=== PATIENT | male | born 1960 | race Caucasian/White ===

== ENCOUNTER 2018-07-18 09:55 | Inpatient (IN) ==
[2018-07-18] MEDS ORDERED: Ipratropium/Albuterol Neb 3 ML IH ONE (10:09)
--- NOTE | 2018-07-18 10:12 | Emergency Department Note ---
Disposition Clinical Impression: Atrial fibrillation with RVR, Pulmonary edema cardiac cause Disposition: Admitted As Inpatient Condition: Fair SOB HPI - General Chief Complaint: ED Shortness of Breath/Dyspnea Stated Complaint: "pneumonia" Time Seen by Provider: 07/18/18 10:03 Source: patient Mode of arrival: ambulatory Limitations: no limitations Nursing Notes Reviewed: Yes Vital Signs Reviewed: Yes - History of Present Illness The patient is a 57 year old male who is a former smoker that presents with productive cough, nasal congestion, and dyspnea. Per patient's report, starting 3 weeks ago he has a persistent gradually worsening productive cough with clear sputum, nasal congestion, rhinorrhea that is clear in color, as well as shortness of breath. He also has noted palpitations that he describes as his heart racing. Patient saw his PCP, who thought he may have PNA, so he was sent here to be evaluated. Patient has been taking mucinex and other over the counter sinus medication, but stopped using these a week ago when they provided no relief. Patient denies fever, chills, headache, dizziness, chest pain, shortness of breath, nausea, vomiting, changes in bowel habits, hematochezia, melena, dysuria, hematuria, and any other associated symptoms. Patient is on Xarelto for prior DVT and vascular surgery. The history, physical exam, and medical decision making was performed by the medical student either while I was physically present and actively involved or I personally re-performed the exam and medical decision making. I have verified the accuracy of the medical student's documentation with regards to the history, physical exam findings, and medical decision making. - Related Data Home Medications Medication Instructions Recorded Confirmed Cholecalciferol (D-3) [Vitamin D] 1,000 unit PO DAILY 07/18/18 07/18/18 Cyanocobalamin (B-12) [Vitamin B12] 1,000 mcg PO DAILY 07/18/18 07/18/18 Magnesium Oxide [Magnesium] 250 mg PO DAILY 07/18/18 07/18/18 [place]-3/Dha/Epa/Fish Oil [Fish Oil 1 cap PO DAILY 07/18/18 07/18/18 1,000 mg Softgel] Rivaroxaban [Xarelto] 20 mg PO DAILY 07/18/18 07/18/18 Turmeric Root Extract [Turmeric] 500 mg PO DAILY 07/18/18 07/18/18 Allergies Allergy/AdvReac Type Severity Reaction Status Date / Time No Known Allergies Allergy Verified 07/18/18 10:03 All systems ED: reviewed and negative except as stated. Review of Systems: As Per HPI Constitutional: Denies: fever, chills Eyes: Denies: eye pain, vision change ENT ED: Reports: congestion. Denies: throat pain Cardiovascular: Reports: palpitations, dyspnea on exertion. Denies: chest pain , edema Respiratory: Reports: cough, dyspnea, wheezes, sputum production Gastrointestinal: Denies: abdominal pain, nausea, vomiting, diarrhea, constipation, hematemesis, melena Genitourinary: Denies: urgency, dysuria, frequency, hematuria Musculoskeletal: Denies: back pain, neck pain Integumentary: Denies: rash, lesions Neurological: Denies: headache, weakness, numbness, paresthesias Hematological/Lymphatic: Denies: easy bleeding Past Medical History - Past Medical History Source: patient Medical history: Reports: DVT Surgical history: Reports: vascular surgery Psychiatric history: Reports: no psych history - Social History Smoking Status: Former smoker Smokeless Tobacco Status: No Alcohol use: Reports: occasionally Drug use: Reports: none Physical Exam - General Limitations: no limitations General appearance: alert, in no apparent distress - Head Head exam: atraumatic, normocephalic - Eye Eye exam: Present: normal appearance. Absent: scleral icterus, conjunctival injection - ENT ENT exam: normal exam, normal oropharynx, mucous membranes moist, TM's normal bilaterally, other (No pharyngeal erythema, no exudate, uvula is mid-line) - Neck Neck exam: Present: normal inspection, full ROM. Absent: trachea midline - Chest Chest inspection: Present: normal inspection, symmetric chest wall rise - Respiratory Respiratory exam: Present: wheezes (diffuse inspiratory and expiratory wheezing) , other (tachypneic, patient speaks in full sentence). Absent: respiratory distress, accessory muscle use - Cardiovascular Cardiovascular exam: Present: normal rhythm, tachycardia, normal heart sounds. Absent: systolic murmur, diastolic murmur, rubs, gallop - Expanded Cardiovascular Exam Peripheral pulses: 1+: radial (R), radial (L), dorsalis pedis (R), dorsalis pedis (L) - Abdominal Exam Abdominal exam: Present: soft, Non-Tender. Absent: distention, guarding, rebound, rigidity - Extremities Exam Extremities exam: Present: normal inspection, full ROM. Absent: pedal edema, calf tenderness - Neurological Exam Neurological exam: Present: alert, oriented X3 - Psychiatric Psychiatric exam: Present: normal affect, normal mood - Skin Skin exam: Present: warm, dry, intact, normal color. Absent: rash, cyanosis, diaphoresis Course - Reevaluation(s) Reevaluation #1: Patient reevaluated at this time, states he feels improved after his DouNeb treatment. Patient continues to have diffuse scattered wheezing at this time, and is tachycardic with a rate in 110s-120s on the monitor. Patient's D-dimer was elevated and CTA was ordered to rule out PE. Time: 11:22 Vital Signs Temperature 97.8 F 07/18/18 09:59 Pulse Rate 141 07/18/18 09:59 Respiratory Rate 24 07/18/18 09:59 Blood Pressure 155/116 07/18/18 09:59 O2 Sat by Pulse Oximetry 97 07/18/18 09:59 Temperature 98.7 F 07/18/18 18:59 Pulse Rate 73 07/18/18 18:59 Respiratory Rate 18 07/18/18 18:59 Blood Pressure 105/79 07/18/18 18:59 O2 Sat by Pulse Oximetry 97 07/18/18 18:59 Oxygen Delivery Oxygen Delivery Room Air Shortness of Breath/Dyspnea - [facility] Narrative Medical decision making narrative: 57-year-old male presents emergency department with concern for shortness of breath, feeling weak for the last few weeks. Patient in atrial fibrillation with RVR. Patient was given IV Cardizem push and started on Cardizem drip. Patient heart rate was reduced secondary to this. Patient was given DuoNeb's initially as he had wheezes on lung exam. Stated that this helped his symptoms. Chest x-ray that was obtained reveals mild basilar congestion interstitial edema pattern. Troponin was negative. Patient had elevated d- dimer. We obtained CTA. Per radiology, no evidence of PE. Findings compatible with interstitial pulmonary edema and small right pleural effusion. Patient admitted to the hospitalist. Heart rate was much improved at time of admission. Patient not started on any blood thinning medication at that time. Chest X-Ray 07/18/18 10:09 IMPRESSION: Mild vascular congestion and interstitial edema pattern. D/ / 07/18/2018 11:02:13 Wai Liang MD / shalini Interpreting Provider: Wai Liang MD Chest CTA 07/18/18 11:12 IMPRESSION: 1. No evidence of pulmonary embolism 2. Findings compatible with interstitial pulmonary edema and small right pleural effusion. Atypical pneumonia a less likely consideration. Mild interval mediastinal lymph node enlargement is likely congestive or reactive D/ / Ash Colvin MD / Ash Colvin MD Interpreting Provider: Ash Colvin MD - Lab Data Result diagrams: 07/18/18 11:14 07/18/18 10:15 Lab Results 07/18/18 07/18/18 07/18/18 Range/Units 10:15 10:19 10:48 WBC (4.3-11.1) K/mcL RBC (4.19-5.50) M/mcL Hgb (12.9-16.9) g/dL Hct (37.5-50.1) % MCV (83.0-100.0) fL MCH (28.0-33.3) pg MCHC (31.6-35.5) g/dL RDW (11.5-14.5) % Plt Count (140-400) K/mcL MPV (9.4-12.4) fL Immature Gran % (0-4) % Seg Neutrophils % % Lymphocytes % % Monocytes % % Eosinophils % % Basophils % % Neutrophils # (1.6-8.9) K/mcL Lymphocytes # (0.6-4.6) K/mcL Monocytes # (0.0-1.3) K/mcL Eosinophils # (0.0-0.6) K/mcL Basophils # (0.0-0.2) K/mcL D-Dimer 1029 H (0-500) ng/mLFEU Sodium 140 (136-145) mEq/L Potassium 4.3 (3.5-5.1) mEq/L Chloride 105 (98-107) mEq/L Carbon Dioxide 24 (23-29) mEq/L BUN 24 H (6-20) mg/dL Creatinine 0.95 (0.70-1.30) mg/dL Est GFR ( Amer) > 60 (> 60) Est GFR (Non-Af Amer) > 60 (> 60) BUN/Creatinine Ratio 25 (6-26) Glucose 112 H (70-105) mg/dL Calculated Osmolality 295 (280-300) Lactic Acid (0.5-2.2) mmol/L Calcium 9.5 (8.6-10.3) mg/dL Troponin I 0.03 (< 0.04) ng/mL B-Natriuretic Peptide 552 H (Less than 100) pg/mL TSH 2.143 (0.340-5.600) mcIU/mL 07/18/18 07/18/18 Range/Units 10:52 11:14 WBC 10.2 (4.3-11.1) K/mcL RBC 4.81 (4.19-5.50) M/mcL Hgb 15.8 (12.9-16.9) g/dL Hct 47.8 (37.5-50.1) % MCV 99.4 (83.0-100.0) fL MCH 32.8 (28.0-33.3) pg MCHC 33.1 (31.6-35.5) g/dL RDW 12.2 (11.5-14.5) % Plt Count 187 (140-400) K/mcL MPV 11.7 (9.4-12.4) fL Immature Gran % 0.3 (0-4) % Seg Neutrophils % 73.5 % Lymphocytes % 15.4 % Monocytes % 9.8 % Eosinophils % 0.5 % Basophils % 0.5 % Neutrophils # 7.5 (1.6-8.9) K/mcL Lymphocytes # 1.6 (0.6-4.6) K/mcL Monocytes # 1.0 (0.0-1.3) K/mcL Eosinophils # 0.1 (0.0-0.6) K/mcL Basophils # 0.1 (0.0-0.2) K/mcL D-Dimer (0-500) ng/mLFEU Sodium (136-145) mEq/L Potassium (3.5-5.1) mEq/L Chloride (98-107) mEq/L Carbon Dioxide (23-29) mEq/L BUN (6-20) mg/dL Creatinine (0.70-1.30) mg/dL Est GFR ( Amer) (> 60) Est GFR (Non-Af Amer) (> 60) BUN/Creatinine Ratio (6-26) Glucose (70-105) mg/dL Calculated Osmolality (280-300) Lactic Acid 1.7 (0.5-2.2) mmol/L Calcium (8.6-10.3) mg/dL Troponin I (< 0.04) ng/mL B-Natriuretic Peptide (Less than 100) pg/mL TSH (0.340-5.600) mcIU/mL - EKG Data EKG attestation: Yes I reviewed and interpreted this EKG. EKG results narrative: 10:13 Heart rate 154 bpm, IA interval no P waves, QRS sikhism 87 ms, QT 307 ms, QTC 392 ms, normal axis. A true fibrillation with rapid ventricular response. Heart rate 154. No ischemic ST changes. Atrial fibrillation new from old EKG.
--- NOTE | 2018-07-18 10:28 | Emergency Department Note ---
Disposition Clinical Impression: Atrial fibrillation with RVR, Pulmonary edema cardiac cause Disposition: Admitted As Inpatient Condition: Fair General Adult HPI - General Chief complaint: ED Shortness of Breath/Dyspnea Stated complaint: "pneumonia" Time Seen by Provider: 07/18/18 10:03 Nursing Notes Reviewed: Yes Vital Signs Reviewed: Yes - History of Present Illness Pain Scale: 3 - Related Data Home Medications Medication Instructions Recorded Confirmed Cholecalciferol (D-3) [Vitamin D] 1,000 unit PO DAILY 07/18/18 07/18/18 Cyanocobalamin (B-12) [Vitamin B12] 1,000 mcg PO DAILY 07/18/18 07/18/18 Magnesium Oxide [Magnesium] 250 mg PO DAILY 07/18/18 07/18/18 [place]-3/Dha/Epa/Fish Oil [Fish Oil 1 cap PO DAILY 07/18/18 07/18/18 1,000 mg Softgel] Rivaroxaban [Xarelto] 20 mg PO DAILY 07/18/18 07/18/18 Turmeric Root Extract [Turmeric] 500 mg PO DAILY 07/18/18 07/18/18 Allergies Allergy/AdvReac Type Severity Reaction Status Date / Time No Known Allergies Allergy Verified 07/18/18 10:03 Past Medical History - Past Medical History Medical history: Reports: no medical history Psychiatric history: Reports: no psych history - Social History Smoking Status: Former smoker Smokeless Tobacco Status: No Alcohol use: Reports: occasionally Drug use: Reports: none Course Vital Signs Temperature 97.8 F 07/18/18 09:59 Pulse Rate 141 07/18/18 09:59 Respiratory Rate 24 07/18/18 09:59 Blood Pressure 155/116 07/18/18 09:59 O2 Sat by Pulse Oximetry 97 07/18/18 09:59 Temperature 98.2 F 07/18/18 16:18 Pulse Rate 108 07/18/18 16:18 Respiratory Rate 18 07/18/18 16:18 Blood Pressure 132/97 07/18/18 16:18 O2 Sat by Pulse Oximetry 95 07/18/18 16:18 Oxygen Delivery Oxygen Delivery Room Air Medical Decision Making - [facility] Narrative Medical decision making narrative: Chest X-Ray 07/18/18 10:09 IMPRESSION: Mild vascular congestion and interstitial edema pattern. D/ / Wai Liang MD / Wai Liang MD Interpreting Provider: Wai Liang MD 1120 hrs.: Patient's d-dimer has come back and is elevated; we're ordering CTA. His heart rates in the upper 90s to low 100s now. Still atrial fibrillation 1312 hrs.: Patient's still in atrial fibrillation still in the 90s to 100s. Waiting on a CTA. Chest X-Ray 07/18/18 10:09 IMPRESSION: Mild vascular congestion and interstitial edema pattern. D/ / 07/18/2018 11:02:13 Wai Liang MD / shalini Interpreting Provider: Wai Liang MD Chest CTA 07/18/18 11:12 IMPRESSION: 1. No evidence of pulmonary embolism 2. Findings compatible with interstitial pulmonary edema and small right pleural effusion. Atypical pneumonia a less likely consideration. Mild interval mediastinal lymph node enlargement is likely congestive or reactive D/ / Ash Colvin MD / Ash Colvin MD Interpreting Provider: Ash Colvin MD 1340 hrs.: No PE on CTA. Were negative and bring him into the hospital new- onset atrial fib with rapid ventricular response controlled with Cardizem. Mild pulmonary edema most likely secondary to the atrial fibrillation. Speaking with hospitalist for admission. - Lab Data Result diagrams: 07/18/18 11:14 07/18/18 10:15 Lab Results 07/18/18 07/18/18 07/18/18 Range/Units 10:15 10:19 10:48 WBC (4.3-11.1) K/mcL RBC (4.19-5.50) M/mcL Hgb (12.9-16.9) g/dL Hct (37.5-50.1) % MCV (83.0-100.0) fL MCH (28.0-33.3) pg MCHC (31.6-35.5) g/dL RDW (11.5-14.5) % Plt Count (140-400) K/mcL MPV (9.4-12.4) fL Immature Gran % (0-4) % Seg Neutrophils % % Lymphocytes % % Monocytes % % Eosinophils % % Basophils % % Neutrophils # (1.6-8.9) K/mcL Lymphocytes # (0.6-4.6) K/mcL Monocytes # (0.0-1.3) K/mcL Eosinophils # (0.0-0.6) K/mcL Basophils # (0.0-0.2) K/mcL D-Dimer 1029 H (0-500) ng/mLFEU Sodium 140 (136-145) mEq/L Potassium 4.3 (3.5-5.1) mEq/L Chloride 105 (98-107) mEq/L Carbon Dioxide 24 (23-29) mEq/L BUN 24 H (6-20) mg/dL Creatinine 0.95 (0.70-1.30) mg/dL Est GFR ( Amer) > 60 (> 60) Est GFR (Non-Af Amer) > 60 (> 60) BUN/Creatinine Ratio 25 (6-26) Glucose 112 H (70-105) mg/dL Calculated Osmolality 295 (280-300) Lactic Acid (0.5-2.2) mmol/L Calcium 9.5 (8.6-10.3) mg/dL Troponin I 0.03 (< 0.04) ng/mL B-Natriuretic Peptide 552 H (Less than 100) pg/mL TSH 2.143 (0.340-5.600) mcIU/mL 07/18/18 07/18/18 Range/Units 10:52 11:14 WBC 10.2 (4.3-11.1) K/mcL RBC 4.81 (4.19-5.50) M/mcL Hgb 15.8 (12.9-16.9) g/dL Hct 47.8 (37.5-50.1) % MCV 99.4 (83.0-100.0) fL MCH 32.8 (28.0-33.3) pg MCHC 33.1 (31.6-35.5) g/dL RDW 12.2 (11.5-14.5) % Plt Count 187 (140-400) K/mcL MPV 11.7 (9.4-12.4) fL Immature Gran % 0.3 (0-4) % Seg Neutrophils % 73.5 % Lymphocytes % 15.4 % Monocytes % 9.8 % Eosinophils % 0.5 % Basophils % 0.5 % Neutrophils # 7.5 (1.6-8.9) K/mcL Lymphocytes # 1.6 (0.6-4.6) K/mcL Monocytes # 1.0 (0.0-1.3) K/mcL Eosinophils # 0.1 (0.0-0.6) K/mcL Basophils # 0.1 (0.0-0.2) K/mcL D-Dimer (0-500) ng/mLFEU Sodium (136-145) mEq/L Potassium (3.5-5.1) mEq/L Chloride (98-107) mEq/L Carbon Dioxide (23-29) mEq/L BUN (6-20) mg/dL Creatinine (0.70-1.30) mg/dL Est GFR ( Amer) (> 60) Est GFR (Non-Af Amer) (> 60) BUN/Creatinine Ratio (6-26) Glucose (70-105) mg/dL Calculated Osmolality (280-300) Lactic Acid 1.7 (0.5-2.2) mmol/L Calcium (8.6-10.3) mg/dL Troponin I (< 0.04) ng/mL B-Natriuretic Peptide (Less than 100) pg/mL TSH (0.340-5.600) mcIU/mL Critical Care Time Critical Care Time: Yes Total Critical Care Time: 45 Attestation: Excluding any separately billable procedures. Attestation Statement - Attestation Attestation: This documentation is done with the assistance of Dragon dictation. Despite efforts made to ensure accuracy, there may be inaccuracies in aluminum sheet cutter or spelling and typographical errors. I examined this patient and my medical decision-making was reviewed with the Resident Physician. I agree with the documented findings, disposition and treatment plan as described except to the extent set forth below. Patient seen and evaluated by Dr. Diaz and myself, I agree with his evaluation and management plan, I supervised the care the patient's stay. Patient presents today with 3 weeks of irregular heart rate. Also some tachycardia. Went to his primary care they thought he might have a pneumonia so they sent him over here he has been dyspneic. He does not have COPD, no one is ill at home is home.He denies any chest pain. He has had 2 DVTs in the past and is currently on Xarelto. They switched him over from Coumadin for ease abuse. We will do a cardiac workup on him, make sure he does not have pneumonia, and also do Cardizem to slow down his heart rate since he is in atrial fib with rapid ventricular response. It does not appear that he has been diagnosed with atrial fib in the past. He will need admission.
[2018-07-18 10:54] LABS: Troponin I 0.03 ng/mL (< 0.04)
[2018-07-18 11:08] LABS: Thyroid Stimulating Hormone 2.143 mcIU/mL (0.340-5.600)
[2018-07-18] MEDS ORDERED: Isovue-370 500 ML INFUS..BTL IV ONE (11:12)
[2018-07-18 11:30] LABS: BUN/Creatinine Ratio 25 (6-26); Blood Urea Nitrogen 24 mg/dL (6-20); Calcium 9.5 mg/dL (8.6-10.3); Carbon Dioxide 24 mEq/L (23-29); Chloride 105 mEq/L (98-107); Glucose 112 mg/dL (70-105); Osmolality,Calculated 295 (280-300); Potassium 4.3 mEq/L (3.5-5.1); Sodium 140 mEq/L (136-145); eGFR For Non-African Americans > 60 (> 60)
[2018-07-18 11:30] LABS: Basophils # 0.1 K/mcL (0.0-0.2); Basophils % 0.5 %; Eosinophils # 0.1 K/mcL (0.0-0.6); Eosinophils % 0.5 %; Hematocrit 47.8 % (37.5-50.1); Hemoglobin 15.8 g/dL (12.9-16.9); Immature Granulocytes % 0.3 % (0-4); Lymphocytes # 1.6 K/mcL (0.6-4.6); Lymphocytes % 15.4 %; Mean Corpuscular HGB Conc 33.1 g/dL (31.6-35.5); Mean Corpuscular Hemoglobin 32.8 pg (28.0-33.3); Mean Corpuscular Volume 99.4 fL (83.0-100.0); Mean Platelet Volume 11.7 fL (9.4-12.4); Monocytes % 9.8 %; Neutrophils # 7.5 K/mcL (1.6-8.9); Platelet Count 187 K/mcL (140-400); Red Blood Count 4.81 M/mcL (4.19-5.50); Red Cell Distribution Width 12.2 % (11.5-14.5); Segmented Neutrophils % 73.5 %
[2018-07-18] MEDS ORDERED: traMADol 50 MG TABLET PO PRN (14:03)
[2018-07-18] MEDS ORDERED: Naloxone 0.4 MG/ML INJ IVP PRN (14:03)
--- NOTE | 2018-07-18 14:18 | Internal Med History&Physical ---
Date of Encounter: 07/18/18 Time of Encounter: 14:10 Internal Medicine - H&P: HPI Chief complaint: shortness of breath Admitted From: Home Plans for Post Hospital Care: Home History of present illness: Mr. Li is a 57 year old male PMH significant for DVT on xarelto. Patient presented to the ED to shortness of breath and productive cough. Patient reported that for about 3 weeks he has been having flu like symptoms which he describes as productive cough of greenish sputum, frontal sinus pressure. He denies fever or chills but reports that he has been feeling short of breath with minimal exertion. He denies chest pain or palpitation, denies orthopnea. Denies nausea, vomiting or abdominal pain. Patient reports that he used to smoke about 1 1/2 pack of cigarettes a day for more than 30 years, but quit 5 years ago after he was diagnosed with a DVT. Past Med Surg Social Fam HX - Past Medical History Medical history: no medical history Psychiatric history: no psych history - Past Surgical History Surgical History: vascular surgery - Social History Smoking Status: Former smoker Smokeless Tobacco Status: No Alcohol use: occasionally Drug use: none Internal Medicine - H&P: Meds Cholecalciferol (D-3) [Vitamin D] 1,000 unit PO DAILY 07/18/18 [History] Cyanocobalamin (B-12) [Vitamin B12] 1,000 mcg PO DAILY 07/18/18 [History] Magnesium Oxide [Magnesium] 250 mg PO DAILY 07/18/18 [History] [place]-3/Dha/Epa/Fish Oil [Fish Oil 1,000 mg Softgel] 1 cap PO DAILY 07/18/18 [History] Rivaroxaban [Xarelto] 20 mg PO DAILY 07/18/18 [History] Turmeric Root Extract [Turmeric] 500 mg PO DAILY 07/18/18 [History] Allergy/AdvReac Type Severity Reaction Status Date / Time No Known Allergies Allergy Verified 07/18/18 10:03 All Systems PM: A 10-system review of systems was performed and is negative for pertinent findings except as documented above in the HPI. - Constitutional Constitutional: fatigue, no chills, no fever(s), no lethargy, no weakness - EENT Eyes: no floaters, no spots in vision Nose, mouth and throat: no dysphagia, no hoarseness, no neck pain - Cardiovascular Cardiovascular ROS IM: dyspnea on exertion, no chest pain, no dyspnea, no edema, no irregular heart rhythm, no lightheadedness, no orthopnea, no palpitations, no paroxysmal nocturnal dyspnea, no syncope - Respiratory Respiratory: cough, dyspnea on exertion, chest congestion, no dyspnea, no hemoptysis, no wheezing, no pain on inspiration - Gastrointestinal Gastrointestinal: no coffee ground emesis, no diarrhea, no melena, no nausea, no vomiting - Genitourinary Genitourinary ROS male: no dysuria, no flank pain, no hematuria, no nocturia - Musculoskeletal Musculoskeletal ROS IM: no atrophy, no back pain, no muscle weakness, no neck pain - Integumentary Integumentary IM: no erythema, no rash - Neurological Neurological ROS: no lack of coordination, no numbness, no weakness - Psychiatric Psychiatric: no anxiety - Endocrine Endocrine IM: no cold intolerance - Allergic/Immunologic Allergic/Immunologic: no wheezing (Rest of the review of systems negative.) - Constitutional Vitals: Temp Pulse Resp BP Pulse Ox 97.8 F 102 28 132/92 99 07/18/18 10:33 07/18/18 12:28 07/18/18 12:28 07/18/18 12:28 07/18/18 12:28 Exam: General: Alert and oriented x4. In mild distress due to sinus pressure. Skin: Normal color, no rash, no lesions. HEENT: EOM, pupils equal, round and reactive. Cardiovascular: Irregularly irregular, normal s1,s2, no murmur, rubs or gallops. Lungs: Scattered expiratory wheezing, rales. Minimal crackles hear at both bases. Abdomen: Soft, non-tender, no rigidity. NABS in all 4 quadrants Extremities: No deformity, 1+ pitting edema in the lower extr. Neurological: Normal cognition and motor skills. Rest of the physical exam is non contributory Internal Med - H&P Results - Labs CBC & Chem 7: 07/18/18 11:14 07/18/18 10:15 - Assessment and plan (1) Atrial fibrillation with RVR Current Visit: Yes Status: Acute Assessment and plan: Patient found to be on A.fib with RvR, no previous diagnosis of A.fib. Possible due to URI?, r/o ischemic causes. Plan started on a cardizem drip started on Metoprolol 25mg/PO daily Cardiology consulted Serial trops Patient on Xarelto due to Hx of DVT CTA of the chest done negative for PE Consider TTE once rate is controlled. Furosemide 40mg/IV daily THS, reflex to T4. (2) Upper respiratory infection Current Visit: Yes Status: Acute Assessment and plan: Patient with flu like symptoms for the past 3 weeks, associated with SOB and productive cough. Expiratory wheezing on chest. COPD vs Emphysema vs interstitial lung disease? patient has a Hx of 30 years of tobacco abuse. CTA: Lungs/pleura: Small right pleural effusion. Thickened interlobular septa in the lung bases. Thickening of the fissures. Emphysema in the upper lobes. Granuloma in the right upper lobe. Plan will treat patient with IV steroid and empiric antibiotics coverage sputum culture and gram stain urine for atypical organisms Qualifiers: URI type: unspecified URI Qualified Code(s): J06.9 - Acute upper respiratory infection, unspecified (3) History of DVT (deep vein thrombosis) Current Visit: Yes Status: Chronic Assessment and plan: Patient was previously on Warfarin but switched to Xarelto about a week about. Will continue Xarelto. - Time Spent With Patient Total time spent is greater than 50% in coordination of care (as documented) at patient's floor/unit and/or counseling patient: 25 - 35 minutes
[2018-07-18 14:55] LABS: Magnesium 1.7 mg/dL (1.6-2.6); Phosphorous 3.2 mg/dL (2.7-4.5)
[2018-07-18] MEDS: Furosemide 40 MG/4 ML VIAL IVP SCH (15:42)
[2018-07-18] MEDS: Levofloxacin 750 MG/150 ML 750 MG/150 ML BAG IVPB SCH (15:42)
[2018-07-18] MEDS: Metoprolol XL (24 HR) Succ 25 MG TAB.ER.24H PO SCH (15:42)
[2018-07-18] MEDS: Levalbuterol 1 PUFF INHALER IH SCH ×2 (15:53→22:05)
[2018-07-18] MEDS: *HR* Rivaroxaban 10 MG TABLET PO SCH (15:57)
[2018-07-18] MEDS ORDERED: MethylPREDNISolone 40 MG/ML VIAL IVP SCH (18:00)
[2018-07-18] MEDS ORDERED: Ipratropium/Albuterol Neb 3 ML IH PRN (19:49)
[2018-07-18] MEDS ORDERED: Perflutren Lipid Microsphere 1.3 ML in 0.9 % Sodium Chloride 8.7 ML IVP ONE (21:18)
--- NOTE | 2018-07-18 22:04 | Electrocardiograph Report ---
[place] [facility] Test Date: 2018-07-18 Pat Name: Bhargav Li Department: EXAM12 Room: [facility] Gender: M Business Management Manager: : 1960 Requested By: Rober Joshua Order Number: [id number] Reading MD: Campbell Disla Measurements Intervals [place] Rate: 154 P: [place]: QRS: 22 QRSD: 87 T: 56 QT: 307 QTc: 492 Interpretive Statements Atrial fibrillation Electronically Signed On 07-18-2018 22:03:05 EDT by Campbell Disla
--- NOTE | 2018-07-18 22:07 | Electrocardiograph Report ---
[place] [facility] Test Date: 2018-07-18 Pat Name: Bhargav Li Department: EXAM12 Room: 15 Gender: M Electrical Maintenance Mechanic: : 1960 Requested By: Rober Joshua Order Number: [id number] Reading MD: Campbell Disla Measurements Intervals [place] Rate: 108 P: [place]: QRS: 16 QRSD: 98 T: 33 QT: 399 QTc: 535 Interpretive Statements Atrial fibrillation Electronically Signed On 07-18-2018 22:05:55 EDT by Campbell Disla
--- NOTE | 2018-07-18 22:08 | Electrocardiograph Report ---
[place] [facility] Test Date: 2018-07-18 Pat Name: Bhargav Li Department: EXAM12 Room: 15 Gender: M Administrative Staff Supervisor: : 1960 Requested By: Rober Joshua Order Number: [id number] Reading MD: Campbell Disla Measurements Intervals [place] Rate: 104 P: [place]: QRS: 16 QRSD: 98 T: 26 QT: 374 QTc: 492 Interpretive Statements Atrial fibrillation Electronically Signed On 07-18-2018 22:06:38 EDT by Campbell Disla
[2018-07-19] MEDS: Levalbuterol 1 PUFF INHALER IH SCH ×4 (10:35→21:09)
[2018-07-19 11:18] LABS: Hematocrit 43.3 % (37.5-50.1); Hemoglobin 14.5 g/dL (12.9-16.9); Immature Platelets 10.2 % (1.1-6.1); Mean Corpuscular HGB Conc 33.5 g/dL (31.6-35.5); Mean Corpuscular Hemoglobin 32.7 pg (28.0-33.3); Mean Corpuscular Volume 97.5 fL (83.0-100.0); Mean Platelet Volume 12.2 fL (9.4-12.4); Red Blood Count 4.44 M/mcL (4.19-5.50); Red Cell Distribution Width 12.3 % (11.5-14.5)
--- NOTE | 2018-07-19 12:03 | Internal Med Progress Note ---
<Dang Abrams - Last Filed: 07/19/18 12:34> Hospitalist Progress Note - Exam Vitals: Temp Pulse Resp BP Pulse Ox 97.9 F 94 18 121/77 97 07/18/18 23:48 07/18/18 23:48 07/19/18 10:35 07/18/18 23:48 07/19/18 10:35 - Assessment and Plan (1) Atrial fibrillation with RVR Current Visit: Yes Status: Acute (2) Upper respiratory infection Current Visit: Yes Status: Acute (3) History of DVT (deep vein thrombosis) Current Visit: Yes Status: Chronic - Time Spent with Patient Total time spent is greater than 50% in coordination of care (as documented) at patient's floor/unit and/or counseling patient: Internal Medicine: Result - Labs CBC & Chem 7: 07/18/18 11:14 07/19/18 03:04 Labs: Cardiac Enzymes 07/18/18 Range/Units 14:24 Troponin I < 0.03 (< 0.04) ng/mL - ABG Interpretation ABG results: PT/INR, D-dimer D-Dimer 1029 ng/mLFEU (0-500) H 07/18/18 10:19 - Impressions Impressions Chest X-Ray 07/18/18 10:09 IMPRESSION: Mild vascular congestion and interstitial edema pattern. D/ / 07/18/2018 11:02:13 Wai Liang MD / [facility] Interpreting Provider: Wai Liang MD Chest CTA 07/18/18 11:12 IMPRESSION: 1. No evidence of pulmonary embolism 2. Findings compatible with interstitial pulmonary edema and small right pleural effusion. Atypical pneumonia a less likely consideration. Mild interval mediastinal lymph node enlargement is likely congestive or reactive D/ / Ash Colvin MD / Ash Colvin MD Interpreting Provider: Ash Colvin MD Echocardiogram 07/18/18 15:51 Impressions: Technically challenging windows. Atrial fibrillation. LVEF grossly appears reduced, estimated 40%. LV chamber size upper limits of normal. Indeterminate diastolic function. Definity echo contrast was used. Normal right ventricular structure and function. Mild-moderate mitral regurgitation. Mild tricuspid regurgitation. Mild pulmonary hypertension. Consult Discharge Plan - Plan Referrals: NONE,PCP [Primary Care Provider] - - Attending Attestation I examined this patient and my medical decision-making was reviewed with the Resident Physician Dr Alejandro. I agree with the documented findings, disposition and treatment plan as described except to the extent set forth below/addl details below. Mr Li has pmhx of former tobacco use, DVT on Xarelto now who presented with 3 weeks sob, cough, green sputum. In ED found ot be in new onset Afib with RVR, pulm vasc congestionon CXR, CTA negative for PE and positive for small right effusion with possible right sided pna and reactive vs congestive mediatinal LAD. He became rate controlled on cardizem gtt and cardds was consulted on admission. awake, alert, no palpitations , chest pain or pressure at this time or in past. SOB appears improved. + cough, + sputum, denies wheezing or orthopnea. No personal hx of afib, cardiovascular disease. + former smoker. No fevers, chills, night sweats or weight loss. Denies le edema or weight gain. gen- alert, awake,appears stated age eyes- pupils equal round, cv- reg rate and irreg/irreg rhythm, normal s1,s2, no murmurs appreciated, no jvd, no le edema, radial pulse 2+ and irreg lungs- ctabl, no wheezing, rhonchi or crackles, normal resp effort on ra abd- soft, non tender, non distended, + bs neuro- AAOx3 New onset Afib with RVR, now rate controlled afib chadsvasc-1 -rate controlled on cardizem gtt and initiation or oral metoprolol -wean off gtt and transition to po cardizem + BB -risk stratify for cvd with trops thus far negative, ekg without ischemic ch anges, check aic and lipids -cards consulted on admit, fu recs -echo 07/18 EF40%, indeterminant diastolic dysfunction, mild to mod MR, CTA chest no PE, possible right pna, small right pleural effusion -already on home xarelto and will cont Possible Right sided Pneumonia, organism unknown at this time, vs Viral URI with symptoms of sob and cough with sputum -CXR with vasc congestion -CT Chest no PE, possble right sided atypical pna, reactive vs congestive mediatinal LAD -cont levaquin, xopenex nebs, -check sputum cx, legionella, strep, viral resp panel Acute Diastolic CHF likely 2/2 Afib rvr, rule out ischemic causes, no prior history, BNP 1029, CXR pullm vasc congestion, CTA small right effusion -Echo as above, EF borderline (40%) with + diastolic dysfunction -afib treatment as above, cards consulted, cont IV lasix, BB Hx dvt on xarelto, cta neg for pe <Edilma Alejandro - Last Filed: 07/19/18 14:33> Hospitalist Progress Note - Encounter Date of Encounter: 07/19/18 Time of Encounter: 09:00 - Subjective Interval History: Patient seen and examined. No acute events overnight. Patient is resting comfortably in bed. Patient states he feels fine. States he feels almost back to normal. Denies any difficulty breathing. Admits cough productive of clear sputum with activity. Admits nasal congestion. Denies chest pain. Denies abdominal pain, nausea/vomiting. Denies urinary or bowel changes. Denies swelling. - Exam Vitals: Temp Pulse Resp BP Pulse Ox 97.9 F 94 16 121/77 96 07/18/18 23:48 07/18/18 23:48 07/18/18 23:48 07/18/18 23:48 07/19/18 00:22 Exam: General: Alert and oriented x3. No acute distress. Head: atraumatic, normocephalic. Eye: pupils equal and round. Sclera anicteric. EOMI. Mouth: oral mucosa moist. Normal oropharynx. Neck: supple. Trachea midline. Lungs: CTAB. No rhonchi, rales or wheezing. No respiratory distress. No accessory muscle use. Cardiovascular: Normal S1 & S2. No rubs or gallops. No JVD. Pulse regular. Abdomen: Normal bowel sounds. Nontender. No guarding, no rigidity, no rebound. Extremities: No joint swelling, edema, or clubbing. Nontender. Skin: warm, dry, and intact. - Assessment and Plan (1) Atrial fibrillation with RVR Current Visit: Yes Status: Acute Assessment and Plan: Patient presented with dyspnea. Was found to be in A-fib with RVR, new diagnosis. Possibly due to URI. Rule out ischemic causes. Serial troponin was negative. TSH was normal. CTA chest was negative for PE. Echo showed LVEF 40% with mild mitral and tricuspid regurgitation. Mild pulmonary hypertension. LVEF mildly reduced compared to previous study. Suspected to be due to tachycardia. Was started on a cardizem drip. Was started on Metoprolol 25mg/PO daily. Patient on Xarelto due to history of arterial occlusion. Continues to be in A-fib, rate ~80s. Today, transition to PO Cardizem. Cardiology consulted and following. TTE to be repeated in 3 months to monitor LVEF. (2) Upper respiratory infection Current Visit: Yes Status: Acute Assessment and Plan: Patient with flu like symptoms for past 3 weeks, associated with SOB and productive cough. Expiratory wheezing on chest. COPD vs emphysema vs interstitial lung disease? Patient has a history of 30 years of tobacco abuse. Strep pneumoniae was negative. Legionella pending. Respiratory panel pending. Blood cultures drawn 05/18 x2 sets are NGTD. CTA chest showed thickened interlobular septa in the lung bases. Thickening of the fissures. Emphysema in the upper lobes. Small right pleural effusion. Discontinued IV steroid. Continue Day 2 of Levaquin. (3) PAD (peripheral artery disease) Current Visit: Yes Status: Chronic Assessment and Plan: History of PAD. 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 Was on Coumadin. Switched to Xarelto 3 weeks ago[address] Follow[address] with Dr. Hampton DVT Prophylaxis: On Xarelto - Time Spent with Patient Total time spent is greater than 50% in coordination of care (as documented) at patient's floor/unit and/or counseling patient: Internal Medicine: Result - Labs CBC & Chem 7: 07/19/18 03:54 07/19/18 03:04 Labs: Cardiac Enzymes 07/18/18 Range/Units 14:24 Troponin I < 0.03 (< 0.04) ng/mL - ABG Interpretation ABG results: PT/INR, D-dimer D-Dimer 1029 ng/mLFEU (0-500) H 07/18/18 10:19 - Impressions Impressions Chest X-Ray 07/18/18 10:09 IMPRESSION: Mild vascular congestion and interstitial edema pattern. D/ / 07/18/2018 11:02:13 Wai Liang MD / [facility] Interpreting Provider: Wai Liang MD Chest CTA 07/18/18 11:12 IMPRESSION: 1. No evidence of pulmonary embolism 2. Findings compatible with interstitial pulmonary edema and small right pleural effusion. Atypical pneumonia a less likely consideration. Mild interval mediastinal lymph node enlargement is likely congestive or reactive D/ / Ash Colvin MD / Ash Colvin MD Interpreting Provider: Ash Colvin MD Echocardiogram 07/18/18 15:51 Impressions: Technically challenging windows. Atrial fibrillation. LVEF grossly appears reduced, estimated 40%. LV chamber size upper limits of normal. Indeterminate diastolic function. Definity echo contrast was used. Normal right ventricular structure and function. Mild-moderate mitral regurgitation. Mild tricuspid regurgitation. Mild pulmonary hypertension. <Dang Abrams - Last Filed: 07/19/18 12:34> (2) Upper respiratory infection Qualifiers: URI type: unspecified URI Qualified Code(s): J06.9 - Acute upper respiratory infection, unspecified <Edilma Alejandro - Last Filed: 07/19/18 14:33> (2) Upper respiratory infection Qualifiers: URI type: unspecified URI Qualified Code(s): J06.9 - Acute upper respiratory infection, unspecified
[2018-07-19] MEDS: Levofloxacin 750 MG/150 ML 750 MG/150 ML BAG IVPB SCH (12:15)
[2018-07-19] MEDS: Furosemide 40 MG/4 ML VIAL IVP SCH (12:15)
[2018-07-19] MEDS: Metoprolol XL (24 HR) Succ 25 MG TAB.ER.24H PO SCH (12:15)
[2018-07-19 12:22] LABS: BUN/Creatinine Ratio 28 (6-26); Blood Urea Nitrogen 25 mg/dL (6-20); Calcium 9.3 mg/dL (8.6-10.3); Carbon Dioxide 22 mEq/L (23-29); Chloride 105 mEq/L (98-107); Glucose 168 mg/dL (70-105); Osmolality,Calculated 294 (280-300); Potassium 4.1 mEq/L (3.5-5.1); Sodium 138 mEq/L (136-145); eGFR For Non-African Americans > 60 (> 60)
[2018-07-19] MEDS: Magnesium Oxide 400 MG TABLET PO SCH (12:38)
--- NOTE | 2018-07-19 13:05 | Cardiology Consult Note ---
<Cassie Garcia - Last Filed: 07/19/18 14:01> Date of Encounter: 07/19/18 Time of Encounter: 12:00 Assessment and Plan (1) Atrial fibrillation with RVR Current Visit: Yes Status: Acute Newly diagnosed atrial fibrillation with RVR (154); chronicity unclear. No palpitations, syncope reported. Activity intolerance, fatigue reported the last 3 weeks in the setting of URI symptoms. TSH normal, no acute electrolyte abnormality identified. Troponin negative x3. BNP 552, CXR: mild interstitial edema TTE 07/18/18: LVEF 40%, mild-moderate MR, mild TR, mild FL. EF mildly reduced, suspect may be tachycardia induced; however cannot r/o isc hemic etiology. At this time, patient desires conservative approach with control of HR, recheck TTE in 3 months; if EF remains reduced, will consider ischemic evaluation at that time. Patient has been anticoagulated on Xarelto for 3 weeks without missed doses (recently transitioned from coumadin to xarelto for convenience); could consider rhythm control strategy prior to discharge; patient desires to further review with Dr. Hunter. CHA2Ds Vasc= 0-1 (? HTN). Continue Xarelto (hx of arterial occlusion) for CVA prevention. (2) Cardiomyopathy Current Visit: Yes Status: Acute Plan as stated above. EF 40%. Suspect tachycardia induced. On CCB, low dose BB. Consider ACEi/ARB by discharge if BP will tolerate. Clinically appears euvolemic upon exam. Qualifiers: Cardiomyopathy type: other Qualified Code(s): I42.8 - Other cardiomyopathies (3) PAD (peripheral artery disease) Current Visit: Yes Status: Acute s/p right femoral-tibial bypass in 2012 secondary to complete arterial occlusion. Has been on coumadin; recently transitioned to Xarelto 20 mg daily--started 3 weeks ago. Follows with Dr. Hampton in the outpatient setting. Discussion w patient/family: The assessment and plan as outlined above was discussed with the patient and/or family members who expressed understanding and agreement. All questions were answered. Thank you for involving us in the care of your patient. Please call with any questions. The patient will be discussed and reviewed with Dr. Hunter; changes to be made accordingly. History of Present Illness Consult date: 07/19/18 Requesting physician: Delano Snatana Consult reason: Afib Chief complaint: Shortness of breath History of present illness: Mr. Li is a 57 year old male with PMHx significant for PAD s/p RLE bypass and prior tobacco abuse who presented to the ED with a 3 week history of productive cough with associated flu like symptoms. Reports fatigue, sinus pressure, and congestion. Describes worsening orthopnea over the past 2-3 days which prompted ED evaluation. Upon arrival to the ED, he was found to be in atrial fibrillation with RVR, rate 154. He was started on IV cardizem gtt. Was also found to have URI and started on IV antibiotics. CTA of chest demonstrated mild interstitial edema with small right pleural effusion. No prior CV history or testing. No chest pain or discomfort reported, no palpitations. 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 Upon exam, symptoms have improved, remains in afib on cardizem gtt. Past Med Surg Social Fam HX - Past Medical History Attestation: Yes The following information was validated with the patient. Source: patient Medical history: peripheral artery disease Psychiatric history: no psych history - Past Surgical History Surgical History: vascular surgery - Social History Smoking Status: Former smoker Smokeless Tobacco Status: No Alcohol use: occasionally Drug use: none - Family History Brother Living Status: Still Living Hx Family Cardiac Disorders: Yes (afib, PPM) Father Living Status: Age at : 67 Cause of : [place] Hx Family Cardiac Disorders: Yes (CAD) Hx Family Endocrine Disorder: Yes (DMII) Mother Living Status: Cause of : complications from fall Hx Family Cardiac Disorders: Yes (valve replacement) Medications and Allergies Cholecalciferol (D-3) [Vitamin D] 1,000 unit PO DAILY 07/18/18 [History] Cyanocobalamin (B-12) [Vitamin B12] 1,000 mcg PO DAILY 07/18/18 [History] Magnesium Oxide [Magnesium] 250 mg PO DAILY 07/18/18 [History] [place]-3/Dha/Epa/Fish Oil [Fish Oil 1,000 mg Softgel] 1 cap PO DAILY 07/18/18 [History] Rivaroxaban [Xarelto] 20 mg PO DAILY 07/18/18 [History] Turmeric Root Extract [Turmeric] 500 mg PO DAILY 07/18/18 [History] Allergy/AdvReac Type Severity Reaction Status Date / Time No Known Allergies Allergy Verified 07/18/18 10:03 All Systems Review: The remainder of the systems were reviewed and are negative - Cardiovascular Cardiovascular: as per HPI Physical Examination Vital Signs, Last 4 Hours Resp Pulse Ox 07/19/18 10:35 18 97 General: Conversant, No Apparent Distress HEENT: Atraumatic, Normocephaly Cardiac: Other (irregularly irregular) Lungs: Normal Breath Sounds Neuro: Alert and responsive Abdomen: Soft Skin: No rashes noted on visualized skin Musculoskeletal: No Chest Wall Tenderness Extremities: No Edema, Normal Pulses Results 07/19/18 03:54 07/19/18 03:04 Lab Results 07/18/18 07/18/18 07/19/18 14:24 14:24 03:04 WBC Hgb Hct Plt Count Sodium 138 Potassium 4.1 Chloride 105 Carbon Dioxide 22 L BUN 25 H Creatinine 0.90 Glucose 168 H Calcium 9.3 Magnesium 1.7 Troponin I < 0.03 07/19/18 03:54 WBC 4.9 D Hgb 14.5 Hct 43.3 Plt Count 164 Sodium Potassium Chloride Carbon Dioxide BUN Creatinine Glucose Calcium Magnesium Troponin I Active Medications Albuterol/Ipratropium (Duoneb) 3 ml IH [id number] PRN PRN Reason: Shortness Of Breath/Wheezing Stop: 01/17/19 19:50 Last Admin: 07/18/18 20:04 Dose: 3 ml Diltiazem HCl (Cardizem) 90 mg PO QID [facility] Stop: 01/18/19 13:01 Last Admin: 07/19/18 12:34 Dose: 90 mg Furosemide (Lasix) 40 mg IVP DAILY [facility] Stop: 01/17/19 14:16 Last Admin: 07/19/18 12:15 Dose: Not Given Levofloxacin/Dextrose (Levaquin Premix 750mg/150 Ml) 750 mg in 150 mls @ 100 mls/hr IVPB DAILY MICHELA; Protocol Stop: 01/17/19 15:01 Last Admin: 07/19/18 12:15 Dose: Not Given Diltiazem HCl 50 mg/ Sodium (Chloride) 50 mls @ 5 mls/hr IVC .Q10H MICHELA; Protocol Stop: 07/19/18 18:00 Last Admin: 07/19/18 00:11 Dose: 12.5 mg/hr, 12.5 mls/hr Levalbuterol HCl (Xopenex) 1 puff IH [id number] [facility] Stop: 01/17/19 16:01 Last Admin: 07/19/18 10:35 Dose: 1 puff Magnesium Oxide (Mag-Ox) 400 mg PO DAILY [facility]; Protocol Stop: 01/18/19 12:31 Last Admin: 07/19/18 12:38 Dose: 400 mg Metoprolol Succinate (Toprol Xl) 25 mg PO DAILY [facility] Stop: 01/17/19 14:31 Last Admin: 07/19/18 12:15 Dose: Not Given Naloxone HCl (Narcan) 0.4 mg IVP Q2MIN PRN PRN Reason: SEE COMMENTS Stop: 01/17/19 14:04 Rivaroxaban (Xarelto) 20 mg PO 1700 [facility] Stop: 01/17/19 17:01 Last Admin: 07/18/18 15:57 Dose: Not Given Tramadol HCl (Ultram) 50 mg PO Q6HR PRN PRN Reason: Moderate Pain Stop: 01/17/19 14:04 Impressions Chest X-Ray 07/18/18 10:09 IMPRESSION: Mild vascular congestion and interstitial edema pattern. D/ / 07/18/2018 11:02:13 Wai Liang MD / [facility] Interpreting Provider: Wai Liang MD Echocardiogram 07/18/18 15:51 Impressions: Technically challenging windows. Atrial fibrillation. LVEF grossly appears reduced, estimated 40%. LV chamber size upper limits of normal. Indeterminate diastolic function. Definity echo contrast was used. Normal right ventricular structure and function. Mild-moderate mitral regurgitation. Mild tricuspid regurgitation. Mild pulmonary hypertension. - Imaging and Cardiology Echo: report reviewed Other Results: 12 hour tele: avg HR=87 afib. No events, no NSVT present. Consult Discharge Plan - Plan Referrals: NONE,PCP [Primary Care Provider] - <Bashir Hunter - Last Filed: 07/20/18 09:39> - Attending Attestation I have personally performed a face to face evaluation on this patient. I have reviewed and agree with the care plan. History and Exam by me shows: AF of uncertain duration. Rate control and anticoagulate. EF 40-45%. Possible tachycardia induced. He prefers medical mgmt. for now and revaluate down the road after controlling tachycardia. Assessment and Plan Discussion w patient/family: The assessment and plan as outlined above was discussed with the patient and/or family members who expressed understanding and agreement. All questions were answered. Thank you for involving us in the care of your patient. Please call with any questions. History of Present Illness History of present illness: Mr. Li is a 57 year old male All Systems Review: The remainder of the systems were reviewed and are negative Physical Examination Vital Signs, Last 4 Hours Temp Pulse Resp BP Pulse Ox 07/20/18 06:34 97.4 F L 84 16 129/90 96 Results 07/20/18 07:49 07/20/18 04:20 Lab Results 07/19/18 07/19/18 07/20/18 03:04 03:54 04:20 WBC 4.9 D 12.9 H D Hgb 14.5 15.0 Hct 43.3 44.9 Plt Count 164 188 Sodium 138 Potassium 4.1 Chloride 105 Carbon Dioxide 22 L BUN 25 H Creatinine 0.90 Glucose 168 H Calcium 9.3 Magnesium 07/20/18 07/20/18 04:20 07:49 WBC 13.1 H Hgb 15.2 Hct 46.2 Plt Count 188 Sodium 137 Potassium 4.4 Chloride 104 Carbon Dioxide 24 BUN 35 H Creatinine 1.09 Glucose 149 H Calcium 9.6 Magnesium 2.0
[2018-07-19] MEDS ORDERED: MethylPREDNISolone 40 MG/ML VIAL IVP ONE (14:54)
[2018-07-19] MEDS ORDERED: Ipratropium/Albuterol Neb 3 ML IH ONE ×2 (14:54)
[2018-07-19] MEDS ORDERED: Metoprolol XL (24 HR) Succ 25 MG TAB.ER.24H PO ONE ×2 (14:54→15:51)
[2018-07-19] MEDS ORDERED: Furosemide 40 MG/4 ML VIAL IV ONE (14:54)
[2018-07-19] MEDS: *HR* Rivaroxaban 10 MG TABLET PO SCH (16:26)
[2018-07-19 19:24] LABS: Adenovirus Not Detected (Not Detect); Coronavirus 229E Not Detected (Not Detect); Coronavirus HKU1 Not Detected (Not Detect); Coronavirus NL63 Not Detected (Not Detect); Coronavirus OC43 Not Detected (Not Detect); Human Metapneumovirus Not Detected (Not Detect); Human Rhinovirus/Enterovirus Not Detected (Not Detect)
[2018-07-19 19:25] LABS: Bordetella Pertussis Not Detected (Not Detect); Chlamydophila pneumoniae Not Detected (Not Detect); Influenza A Subtype 2009 H1 Not Detected (Not Detect); Influenza A Untypeable Not Detected (Not Detect); Influenza B Not Detected (Not Detect); Mycoplasma pneumoniae Not Detected (Not Detect); Parainfluenza Virus 1 Not Detected (Not Detect); Parainfluenza Virus 2 Not Detected (Not Detect); Parainfluenza Virus 3 Not Detected (Not Detect); Parainfluenza Virus 4 Not Detected (Not Detect); Respiratory Syncytial Virus Not Detected (Not Detect)
[2018-07-20] MEDS: Levalbuterol 1 PUFF INHALER IH SCH (03:09)
[2018-07-20 04:33] LABS: Basophils % 0.2 %; Hematocrit 44.9 % (37.5-50.1); Immature Granulocytes % 0.5 % (0-4); Lymphocytes % 7.4 %; Mean Corpuscular HGB Conc 33.4 g/dL (31.6-35.5); Mean Corpuscular Hemoglobin 32.8 pg (28.0-33.3); Mean Platelet Volume 11.4 fL (9.4-12.4); Monocytes # 1.3 K/mcL (0.0-1.3); Monocytes % 9.9 %; Neutrophils # 10.6 K/mcL (1.6-8.9); Platelet Count 188 K/mcL (140-400); Red Blood Count 4.58 M/mcL (4.19-5.50); Red Cell Distribution Width 12.3 % (11.5-14.5)
[2018-07-20 04:53] LABS: BUN/Creatinine Ratio 32 (6-26); Blood Urea Nitrogen 35 mg/dL (6-20); Calcium 9.6 mg/dL (8.6-10.3); Carbon Dioxide 24 mEq/L (23-29); Chloride 104 mEq/L (98-107); Glucose 149 mg/dL (70-105); Osmolality,Calculated 295 (280-300); Potassium 4.4 mEq/L (3.5-5.1); Sodium 137 mEq/L (136-145); eGFR For Non-African Americans > 60 (> 60)
[2018-07-20 07:57] LABS: Hematocrit 46.2 % (37.5-50.1); Hemoglobin 15.2 g/dL (12.9-16.9); Immature Platelets 9.6 % (1.1-6.1); Mean Corpuscular HGB Conc 32.9 g/dL (31.6-35.5); Mean Corpuscular Hemoglobin 32.5 pg (28.0-33.3); Mean Corpuscular Volume 98.7 fL (83.0-100.0); Mean Platelet Volume 11.5 fL (9.4-12.4); Red Blood Count 4.68 M/mcL (4.19-5.50); Red Cell Distribution Width 12.4 % (11.5-14.5)
[2018-07-20 07:58] LABS: Estimated Average Glucose 117 mg/dl; Hemoglobin A1C 5.7 %
[2018-07-20] MEDS: Magnesium Oxide 400 MG TABLET PO SCH (08:01)
[2018-07-20] MEDS: Furosemide 40 MG/4 ML VIAL IVP SCH (08:02)
[2018-07-20] MEDS: Levofloxacin 750 MG/150 ML 750 MG/150 ML BAG IVPB SCH (08:02)
--- NOTE | 2018-07-20 08:49 | Internal Med Progress Note ---
<Edilma Alejandro - Last Filed: 07/20/18 11:51> Hospitalist Progress Note - Encounter Date of Encounter: 07/20/18 Time of Encounter: 08:15 - Subjective Interval History: Patient seen and examined. No acute events overnight. Patient is resting comfortably in bed. Patient states he feels fine. States his breathing is back to normal. Still coughing, unchanged from yesterday. States nasal congestion is improved. Denies chest pain. Denies abdominal pain, nausea/vomiting. Denies urinary or bowel changes. Denies swelling. - Exam Vitals: Temp Pulse Resp BP Pulse Ox 97.4 F L 84 16 129/90 96 07/20/18 06:34 07/20/18 06:34 07/20/18 06:34 07/20/18 06:34 07/20/18 06:34 Exam: General: Alert and oriented x3. No acute distress. Head: atraumatic, normocephalic. No facial tenderness. Eye: pupils equal and round. Sclera anicteric. EOMI. Mouth: oral mucosa moist. Normal oropharynx. Neck: supple. Trachea midline. Lungs: Diffuse wheezing. No rhonchi or rales. No respiratory distress. No accessory muscle use. Cardiovascular: Normal S1 & S2. No rubs or gallops. No JVD. Pulse regular. Abdomen: Normal bowel sounds. Nontender. No guarding, no rigidity, no rebound. Extremities: No joint swelling, edema, or clubbing. Nontender. Skin: warm, dry, and intact. - Assessment and Plan (1) Atrial fibrillation with RVR Current Visit: Yes Status: Acute Assessment and Plan: Patient presented with dyspnea. Was found to be in A-fib with RVR, new diagnosis. Possibly due to URI. Rule out ischemic causes. Serial troponin was negative. TSH was normal. CTA chest was negative for PE. Echo showed LVEF 40% with mild mitral and tricuspid regurgitation. Mild pulmonary hypertension. LVEF mildly reduced compared to previous study. Suspected to be due to tachycardia. Was started on a cardizem drip. Was started on Metoprolol 25mg/PO daily. Patient on Xarelto due to history of arterial occlusion. Continued to be in A-fib, rate ~80s. Transitioned to PO Cardizem 90mg QID. Remains in A-fib, heart rate 80s. Add on Lisinopril 5mg this afternoon if BP remains stable. Cardiology consulted and following. TTE to be repeated in 3 months to monitor LVEF. (2) Upper respiratory infection Current Visit: Yes Status: Acute Assessment and Plan: Patient with flu like symptoms for past 3 weeks, associated with SOB and pr oductive cough. Expiratory wheezing on chest. COPD vs emphysema vs interstitial lung disease? Patient has a history of 30 years of tobacco abuse. Strep pneumoniae was negative. Legionella pending. Respiratory panel is negative. Blood cultures drawn 05/18 x2 sets are NGTD. CTA chest showed thickened interlobular septa in the lung bases. Thickening of the fissures. Emphysema in the upper lobes. Small right pleural effusion. Discontinued IV steroid. Continue levalbuterol. Continue Day 3 of Levaquin. (3) PAD (peripheral artery disease) Current Visit: Yes Status: Chronic Assessment and Plan: History of PAD. 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 Was on Coumadin. Switched to Xarelto 3 weeks ago[address] Follow[address] with Dr. Hampton DVT Prophylaxis: On Xarelto - Time Spent with Patient Total time spent is greater than 50% in coordination of care (as documented) at patient's floor/unit and/or counseling patient: Internal Medicine: Result - Labs CBC & Chem 7: 07/20/18 07:49 07/20/18 04:20 Labs: Short CBC 07/19/18 07/20/18 07/20/18 Range/Units 03:54 04:20 07:49 WBC 4.9 D 12.9 H D 13.1 H (4.3-11.1) K/mcL Hgb 14.5 15.0 15.2 (12.9-16.9) g/dL Hct 43.3 44.9 46.2 (37.5-50.1) % Plt Count 164 188 188 (140-400) K/mcL Neutrophils # 10.6 H (1.6-8.9) K/mcL BMP 07/19/18 07/20/18 03:04 04:20 Sodium 138 137 Potassium 4.1 4.4 Chloride 105 104 Carbon Dioxide 22 L 24 BUN 25 H 35 H Creatinine 0.90 1.09 Glucose 168 H 149 H Calcium 9.3 9.6 - ABG Interpretation ABG results: PT/INR, D-dimer D-Dimer 1029 ng/mLFEU (0-500) H 07/18/18 10:19 - Impressions Impressions Echocardiogram 07/18/18 15:51 Impressions: Technically challenging windows. Atrial fibrillation. LVEF grossly appears reduced, estimated 40%. LV chamber size upper limits of normal. Indeterminate diastolic function. Definity echo contrast was used. Normal right ventricular structure and function. Mild-moderate mitral regurgitation. Mild tricuspid regurgitation. Mild pulmonary hypertension. Consult Discharge Plan - Plan Referrals: NONE,PCP [Primary Care Provider] - <Dang Abrams - Last Filed: 07/20/18 14:12> Hospitalist Progress Note - Exam Vitals: Temp Pulse Resp BP Pulse Ox 97.7 F 85 16 102/64 95 07/20/18 10:43 07/20/18 10:43 07/20/18 10:43 07/20/18 10:43 07/20/18 10:43 - Assessment and Plan (1) Atrial fibrillation with RVR Current Visit: Yes Status: Acute (2) Upper respiratory infection Current Visit: Yes Status: Acute (3) PAD (peripheral artery disease) Current Visit: Yes Status: Chronic - Time Spent with Patient Total time spent is greater than 50% in coordination of care (as documented) at patient's floor/unit and/or counseling patient: Internal Medicine: Result - Labs CBC & Chem 7: 07/20/18 07:49 07/20/18 04:20 Labs: Short CBC 07/20/18 07/20/18 Range/Units 04:20 07:49 WBC 12.9 H D 13.1 H (4.3-11.1) K/mcL Hgb 15.0 15.2 (12.9-16.9) g/dL Hct 44.9 46.2 (37.5-50.1) % Plt Count 188 188 (140-400) K/mcL Neutrophils # 10.6 H (1.6-8.9) K/mcL BMP 07/20/18 04:20 Sodium 137 Potassium 4.4 Chloride 104 Carbon Dioxide 24 BUN 35 H Creatinine 1.09 Glucose 149 H Calcium 9.6 - ABG Interpretation ABG results: PT/INR, D-dimer D-Dimer 1029 ng/mLFEU (0-500) H 07/18/18 10:19 - Attending Attestation I examined this patient and my medical decision-making was reviewed with the Resident Physician Dr Alejandro. I agree with the documented findings, disposition and treatment plan as described except to the extent set forth below/addl details below. Mr Guillermo has pmhx of former tobacco use, DVT on Xarelto now who presented with 3 weeks sob, cough, green sputum. In ED found ot be in new onset Afib with RVR, pulm vasc congestionon CXR, CTA negative for PE and positive for small right effusion with possible right sided pna and reactive vs congestive mediastinal LAD. He became rate controlled on cardizem gtt and cards was consulted. awake, alert, no palpitations , chest pain or pressure. continued dry haking cough, no sob, fevers or chills. + wheezing today worse than yesterday. gen- alert, awake,appears stated age cv- reg rate and irreg/irreg rhythm, normal s1,s2, no murmurs appreciated, no jvd, no le edema, radial pulse 2+ and irreg lungs- ctabl, + diffuse exp wheezing, norhonchi or crackles, normal resp effort on ra neuro- AAOx3 New onset Afib with RVR, now rate controlled afib chadsvasc-1 already on xarelto at home -rate controlled with oral BB, cards adjusting as needed, ok to titrate as needed -echo 07/18 EF40%, indeterminant diastolic dysfunction, mild to mod MR, reduced EF likely 2/2 afib but cannot rule out ischemic etiology--repeat echo in 3 mon with cards and further ischemic work up as needed at that time CTA chest no PE, possible right pna, small right pleural effusion Possible Right sided Pneumonia, organism unknown at this time, vs Viral URI with symptoms of sob and cough with sputum -CXR with vasc congestion -CT Chest no PE, possble right sided atypical pna, reactive vs congestive mediatinal LAD -cont levaquin, xopenex nebs Acute Diastolic CHF likely 2/2 Afib rvr, rule out ischemic causes outpt as above, no prior history, BNP 1029, CXR pulm vasc congestion, CTA small right effusion -Echo as above, EF borderline (40%) with + diastolic dysfunction -cont BB, start low dose acei as bp permits, change from iv lasix to PO in am, will address lasix continuation need at time of dc Prediabetes A1C 5.7- diet and lifestyle modifications, fu with pcp Hx dvt on nargis, cta neg for pe <Edilma Alejandro - Last Filed: 07/20/18 11:51> (2) Upper respiratory infection Qualifiers: URI type: unspecified URI Qualified Code(s): J06.9 - Acute upper respiratory infection, unspecified <Dang Abrams - Last Filed: 07/20/18 14:12> (2) Upper respiratory infection Qualifiers: URI type: unspecified URI Qualified Code(s): J06.9 - Acute upper respiratory infection, unspecified
[2018-07-20] MEDS ORDERED: Levalbuterol Neb 0.63 MG/3 ML IH PRN (09:03)
[2018-07-20] MEDS: Levalbuterol Neb 1.25 MG/3 ML IH SCH ×3 (10:23→21:51)
[2018-07-20] MEDS: Metoprolol XL (24 HR) Succ 50 MG TAB.ER.24H PO SCH (10:36)
--- NOTE | 2018-07-20 12:04 | Cardiology Progress Note ---
Date of Encounter: 07/20/18 Time of Encounter: 12:00 Assessment and Plan (1) Atrial fibrillation with RVR Current Visit: Yes Status: Acute Newly diagnosed atrial fibrillation with RVR (154); chronicity unclear. No palpitations, syncope reported. Activity intolerance, fatigue reported the last 3 weeks in the setting of URI symptoms. TSH normal, no acute electrolyte abnormality identified. Troponin negative x3. BNP 552, CXR: mild interstitial edema TTE 07/18/18: LVEF 40%, mild-moderate MR, mild TR, mild PA. Patient is rate controlled on oral BB--cardizem stopped, given reduced LVEF, avoid CCB if able. Increase Toprol XL if needed. EF mildly reduced, suspect may be tachycardia induced; however cannot r/o ischemic etiology. At this time, patient desires conservative approach with control of HR, recheck TTE in 3 months; if EF remains reduced, will consider ischemic evaluation at that time. Patient has been anticoagulated on Xarelto for 3 weeks without missed doses (recently transitioned from coumadin to xarelto for convenience); could consider rhythm control strategy--patient will follow-up in the outpatient setting to discuss. CHA2Ds Vasc= 0-1 (? HTN). Continue Xarelto (hx of arterial occlusion) for CVA prevention. Cardiology will sign-off, will coordinate outpatient follow-up. (2) Cardiomyopathy Current Visit: Yes Status: Acute Plan as stated above. EF 40%. Suspect tachycardia induced. Will stop CCB, continue BB. Consider ACEi/ARB by discharge if BP will tolerate--will not start today as SBP is currently low 100's Clinically appears euvolemic upon exam. Strict I&Os, Na/fluid restricted diet, daily weights Qualifiers: Cardiomyopathy type: other Qualified Code(s): I42.8 - Other cardiomyop athies (3) PAD (peripheral artery disease) Current Visit: Yes Status: Chronic s/p right femoral-tibial bypass in 2012 secondary to complete arterial occlusion. Has been on coumadin; recently transitioned to Xarelto 20 mg daily--started 3 weeks ago. Follows with Dr. Hampton in the outpatient setting. Discussion w patient/family: The assessment and plan as outlined above was discussed with the patient and/or family members who expressed understanding and agreement. All questions were answered. Thank you for involving us in the care of your patient. Please call with any questions. The patient will be discussed and reviewed with Dr. Hunter; changes to be made accordingly. Subjective Principal diagnosis: Afib Interval history: Seen and examined. No CV complaints today. Is anxious for d/c to home. Objective Vital Signs, Last 4 Hours Temp Pulse Resp BP Pulse Ox 07/20/18 10:43 97.7 F 85 16 102/64 95 07/20/18 10:23 20 96 General: Conversant, No Apparent Distress HEENT: Atraumatic, Normocephaly, Mucus Membranes Moist Neck: No JVD, Normal carotid pulses Cardiac: No Murmur, Other (irregularly irregular) Lungs: Normal Breath Sounds, No Wheeze, Rales, Rhonchi Neuro: Alert and responsive, No focal deficits noted Abdomen: Soft, Non-Tender Skin: No rashes noted on visualized skin Musculoskeletal: No Chest Wall Tenderness Extremities: No Clubbing, No Cyanosis, No Edema, Normal Pulses Results 07/20/18 07:49 07/20/18 04:20 Lab Results 07/19/18 07/19/18 07/20/18 03:04 03:54 04:20 WBC 4.9 D 12.9 H D Hgb 14.5 15.0 Hct 43.3 44.9 Plt Count 164 188 Sodium 138 Potassium 4.1 Chloride 105 Carbon Dioxide 22 L BUN 25 H Creatinine 0.90 Glucose 168 H Calcium 9.3 Magnesium 07/20/18 07/20/18 04:20 07:49 WBC 13.1 H Hgb 15.2 Hct 46.2 Plt Count 188 Sodium 137 Potassium 4.4 Chloride 104 Carbon Dioxide 24 BUN 35 H Creatinine 1.09 Glucose 149 H Calcium 9.6 Magnesium 2.0 Active Medications Furosemide (Lasix) 40 mg IVP DAILY [facility] Stop: 01/17/19 14:16 Last Admin: 07/20/18 08:02 Dose: 40 mg Levofloxacin/Dextrose (Levaquin Premix 750mg/150 Ml) 750 mg in 150 mls @ 100 mls/hr IVPB DAILY [facility]; Protocol Stop: 01/17/19 15:01 Last Admin: 07/20/18 08:02 Dose: 100 mls/hr Levalbuterol HCl (Xopenex) 1.25 mg IH [id number] [facility] Stop: 04/20/19 10:01 Last Admin: 07/20/18 10:23 Dose: 1.25 mg Levalbuterol HCl (Xopenex) 0.63 mg IH [id number] PRN PRN Reason: Shortness Of Breath/Wheezing Stop: 01/19/19 12:01 Magnesium Oxide (Mag-Ox) 400 mg PO DAILY [facility]; Protocol Stop: 01/18/19 12:31 Last Admin: 07/20/18 08:01 Dose: 400 mg Metoprolol Succinate (Toprol Xl) 50 mg PO DAILY [facility] Stop: 01/19/19 09:01 Last Admin: 07/20/18 10:36 Dose: 50 mg Naloxone HCl (Narcan) 0.4 mg IVP Q2MIN PRN PRN Reason: SEE COMMENTS Stop: 01/17/19 14:04 Rivaroxaban (Xarelto) 20 mg PO 1700 [facility] Stop: 01/17/19 17:01 Last Admin: 07/19/18 16:26 Dose: 20 mg Tramadol HCl (Ultram) 50 mg PO Q6HR PRN PRN Reason: Moderate Pain Stop: 01/17/19 14:04 - Imaging and Cardiology Echo: report reviewed - EKG Interpretation EKG results cardiology: personally reviewed Consult Discharge Plan - Plan Referrals: NONE,PCP [Primary Care Provider] -
[2018-07-20] MEDS: *HR* Rivaroxaban 10 MG TABLET PO SCH (16:13)
[2018-07-21] MEDS: Levalbuterol Neb 1.25 MG/3 ML IH SCH ×2 (04:30→10:35)
[2018-07-21 05:47] LABS: Basophils % 0.4 %; Eosinophils % 0.4 %; Hematocrit 44.9 % (37.5-50.1); Hemoglobin 15.1 g/dL (12.9-16.9); Immature Granulocytes % 0.5 % (0-4); Lymphocytes % 25.2 %; Mean Corpuscular HGB Conc 33.6 g/dL (31.6-35.5); Mean Corpuscular Hemoglobin 32.5 pg (28.0-33.3); Mean Corpuscular Volume 96.8 fL (83.0-100.0); Mean Platelet Volume 11.4 fL (9.4-12.4); Monocytes # 0.7 K/mcL (0.0-1.3); Monocytes % 9.3 %; Platelet Count 167 K/mcL (140-400); Red Blood Count 4.64 M/mcL (4.19-5.50); Red Cell Distribution Width 12.4 % (11.5-14.5); Segmented Neutrophils % 64.2 %
[2018-07-21 06:07] LABS: BUN/Creatinine Ratio 31 (6-26); Blood Urea Nitrogen 33 mg/dL (6-20); Carbon Dioxide 27 mEq/L (23-29); Chloride 105 mEq/L (98-107); Glucose 95 mg/dL (70-105); Osmolality,Calculated 293 (280-300); Potassium 4.1 mEq/L (3.5-5.1); Sodium 138 mEq/L (136-145); eGFR For Non-African Americans > 60 (> 60)
[2018-07-21] MEDS: Magnesium Oxide 400 MG TABLET PO SCH (07:58)
[2018-07-21] MEDS: Levofloxacin 750 MG/150 ML 750 MG/150 ML BAG IVPB SCH (07:58)
[2018-07-21] MEDS: Metoprolol XL (24 HR) Succ 50 MG TAB.ER.24H PO SCH (07:58)
[2018-07-21] MEDS ORDERED: Furosemide 40 MG TABLET PO SCH (09:00)
[2018-07-21] MEDS ORDERED: Metoprolol XL (24 HR) Succ 25 MG TAB.ER.24H PO ONE (09:34)
[2018-07-21 11:12] VITALS: BP 122/87
--- NOTE | 2018-07-21 13:44 | Discharge Summary ---
<Edilma Alejandro - Last Filed: 07/21/18 14:04> - NOTES TO OUTPATIENT PROVIDER Notes to Outpatient Provider: Add lisinopril 5mg as outpatient, if BP permits. Patient needs followup TTE in 3 months to monitor mildly reduced LVEF 40%. If still reduced, may require ischemic evaluation. Orders not resulted at time of discharge: Pending orders 07/18/18 10:22 Legionella Type 1 Antibody,IgM Routine 07/18/18 10:52 Culture,Blood [] Stat Date of Encounter: 07/21/18 Time of Encounter: 08:45 - Discharge Diagnosis (1) Atrial fibrillation with RVR Priority: Primary Status: Acute (2) Upper respiratory infection Priority: Primary Status: Acute Qualifiers: URI type: unspecified URI Qualified Code(s): J06.9 - Acute upper respiratory infection, unspecified (3) PAD (peripheral artery disease) Priority: Secondary Status: Chronic Hospital course: Mr. Li is a 57 year old male with past medical history of arterial occlusion status post graft bypass, on xarelto. History of smoking about 1 1/2 pack of cigarettes a day for more than 30 years, but quit 5 years ago after he was diagnosed with arterial occlusion. Patient presented to the ED to shortness of breath and productive cough. Patient reported that for about 3 weeks he has been having flu like symptoms which he describes as productive cough of greenish sputum, frontal sinus pressure. He denied fever or chills but reported feeling short of breath with minimal exertion. He denied chest pain or palpitation, denied orthopnea. Denied nausea, vomiting or abdominal pain. CBC was unremarkable. BMP was unremarkable. Electrolytes were normal. D-dimer was elevated at 1029. Lactic acid was normal. Serial troponins were negative. BNP was elevated at 552. TSH was normal. Strep pneumonia was negative. Lipid panel was WNL. A1C was 5.7%. Respiratory panel was negative. EKG showed A-fib with RVR, HR 150s. CXR showed mild vascular congestion with interstitial edema. CTA chest showed interstitial pulmonary edema, small right pleural effusion, no PE. Echo showed LVEF 40%, mildly reduced compared to prior study. Cardiology was consulted for Afib with RVR. Was started on Cardizem drip, BB. Patient was already on xarelto. Rate controlled in 80s. Was transitioned to Cardizem PO, rate controlled in 80s. Cardizem was discontinued. Heart rate increased to 100s. Increased Toprol to 75mg. A-fib was determined unlikely from ischemic cause. Mildly reduced LVEF on echo was suspected to be due to tachycardia. URI for 3 weeks with unknown causative organism was treated with Levaquin and bronchodilators. Blood cultures showed no growth. Dyspnea and nasal congestion are resolved. - Time Spent with Patient Total time spent providing and/or coordinating discharge services: Greater than 30 minutes (42 minutes) - Discharge Medications Prescriptions: levoFLOXacin [Levaquin] 750 mg PO DAILY #1 tablet Metoprolol XL (24 HR) Succ [Toprol Xl] 25 mg PO DAILY #30 tab.er.24h Metoprolol XL (24 HR) Succ [Toprol Xl] 50 mg PO DAILY #30 tab.er.24h Home Medications: Cholecalciferol (D-3) [Vitamin D] 1,000 unit PO DAILY 07/18/18 [History] Cyanocobalamin (B-12) [Vitamin B12] 1,000 mcg PO DAILY 07/18/18 [History] Magnesium Oxide [Magnesium] 250 mg PO DAILY 07/18/18 [History] Fallentimber-3/Dha/Epa/Fish Oil [Fish Oil 1,000 mg Softgel] 1 cap PO DAILY 07/18/18 [History] Rivaroxaban [Xarelto] 20 mg PO DAILY 07/18/18 [History] Turmeric Root Extract [Turmeric] 500 mg PO DAILY 07/18/18 [History] Metoprolol XL (24 HR) Succ [Toprol Xl] 25 mg PO DAILY #30 tab.er.24h 07/21/18 [Rx] Metoprolol XL (24 HR) Succ [Toprol Xl] 50 mg PO DAILY #30 tab.er.24h 07/21/18 [Rx] levoFLOXacin [Levaquin] 750 mg PO DAILY #1 tablet 07/21/18 [Rx] Allergies/Adverse Reactions: Allergy/AdvReac Type Severity Reaction Status Date / Time No Known Allergies Allergy Verified 07/18/18 10:03 Date of admission: 07/19/18 13:22 Primary care physician: PCP NONE Consults: 07/18/18 14:01 Consult to Cardiology [CONS] Routine Comment: Consulting Provider: Cardiology Trevor Reason for Consult: new onset A.fib Call Completed: No Discharging clinician: Edilma Alejandro Anticipated date of discharge: 07/21/18 - Constitutional Vitals: Temp Pulse Resp BP Pulse Ox 98.2 F 84 18 122/87 95 07/21/18 11:08 07/21/18 12:37 07/21/18 11:08 07/21/18 11:08 07/21/18 11:08 Exam: General: Alert and oriented x3. No acute distress. Head: atraumatic, normocephalic. No facial tenderness. Eye: pupils equal and round. Sclera anicteric. EOMI. Mouth: oral mucosa moist. Normal oropharynx. Neck: supple. Trachea midline. Lungs: Diffuse wheezing. No rhonchi or rales. No respiratory distress. No accessory muscle use. Cardiovascular: Normal S1 & S2. No rubs or gallops. No JVD. Pulse regular. Abdomen: Normal bowel sounds. Nontender. No guarding, no rigidity, no rebound. Extremities: No joint swelling, edema, or clubbing. Nontender. Skin: warm, dry, and intact. - Patient Status Disposition: Home, Self-Care Condition: Good - Discharge Instructions Follow Up With: Kimmie Love APN [Advanced Practice Nurse] - (Please call and schedule a hospital follow up in 5-7 days) Additional Instructions: Cardiology Dr. Hunter's office will call with followup appointment. Daily weights. If gain more than 2 pounds in a day, call PCP or Cardiology. - Diet and Activity Activity: increase activity as tolerated <Dang Abrams - Last Filed: 07/21/18 14:59> - NOTES TO OUTPATIENT PROVIDER Notes to Outpatient Provider: He was found to have pre diabetes with A1c check. Please cont to monitor for diet/lifestyle changes and repeat a1c as outpt. New med includes Toprol XL Orders not resulted at time of discharge: Pending orders 07/18/18 10:22 Legionella Type 1 Antibody,IgM Routine 07/18/18 10:52 Culture,Blood [BC] Stat 07/18/18 14:34 Sputum Culture [Culture,Sputum with Gram Stain] [RM] Routine 07/22/18 04:00 Basic Metabolic Panel AM 0400 Complete Blood Count [HEME] AM 0400 07/23/18 04:00 Basic Metabolic Panel AM 0400 Complete Blood Count [HEME] AM 0400 07/24/18 04:00 Basic Metabolic Panel AM 0400 Complete Blood Count [HEME] AM 0400 07/25/18 04:00 Basic Metabolic Panel AM 0400 Complete Blood Count [HEME] AM 0400 - Discharge Diagnosis (1) Atrial fibrillation with RVR Status: Acute (2) Upper respiratory infection Status: Acute Qualifiers: URI type: unspecified URI Qualified Code(s): J06.9 - Acute upper respiratory infection, unspecified (3) PAD (peripheral artery disease) Status: Chronic Hospital course: Mr. Li is a 57 year old male - Time Spent with Patient Total time spent providing and/or coordinating discharge services: Date of admission: 07/19/18 13:22 Primary care physician: PCP NONE Consults: 07/18/18 14:01 Consult to Cardiology [CONS] Routine Comment: Consulting Provider: Cardiology Trevor Reason for Consult: new onset A.fib Call Completed: No - Constitutional Vitals: Temp Pulse Resp BP Pulse Ox 98.2 F 84 18 122/87 95 07/21/18 11:08 07/21/18 12:37 07/21/18 11:08 07/21/18 11:08 07/21/18 11:08 - Patient Status Overall status at discharge: patient is back to baseline - Diet and Activity Diet: low fat, low cholesterol - Attending Attestation I examined this patient and my medical decision-making was reviewed with the Resident Physician Dr Alejandro. I agree with the documented findings, disposition and treatment plan as described except to the extent set forth below/addl details below. Mr Li has pmhx of former tobacco use, DVT on Xarelto now who presented with 3 weeks sob, cough, green sputum. In ED found to be in new onset Afib with RVR, pulm vasc congestion on CXR, CTA negative for PE and positive for small right effusion with possible right sided pna and reactive vs congestive mediastinal LAD. He became rate controlled on cardizem gtt, was transitioned to oral meds and followed by cardiology. REspiratory infection treated with nebs, abx with good improvement in sxs. dc to home in stable condition with pcp and cards follow up awake, alert, feeling back to baseline. No wheezing or sob, "best I've felt in 3 months". no palpitations , chest pain or pressure. discharge plan discussed in detaill as questions answered gen- alert, awake,appears stated age cv- reg rate and irreg/irreg rhythm, normal s1,s2, no murmurs appreciated, no jvd, no le edema, radial pulse 2+ and irreg lungs- ctabl, + diffuse exp wheezing, norhonchi or crackles, normal resp effort on ra neuro- AAOx3 New onset Afib with RVR, now rate controlled afib chadsvasc-1 already on xarelto at home -rate controlled with oral BB,cards followed -uptritrate toprol XL to 75 mg daily and good effect/tolerated med -echo 07/18 EF40%, indeterminant diastolic dysfunction, mild to mod MR, reduced EF likely 2/2 afib but cannot rule out ischemic etiology--repeat echo in 3 months with cards and further ischemic work up as needed at that time CTA chest no PE, possible right pna, small right pleural effusion Possible Right sided Pneumonia, organism unknown, community acquired, vs Viral URI with symptoms of sob and cough with sputum -CXR with vasc congestion -CT Chest no PE, possble right sided atypical pna, reactive vs congestive mediatinal LAD -cont levaquin po outpt to complete course, xopenex nebs Acute Diastolic CHF likely 2/2 Afib rvr, rule out ischemic causes outpt as above, no prior history, BNP 1029, CXR pulm vasc congestion, CTA small right effusion -Echo as above, EF borderline (40%) with + diastolic dysfunction -cont BB, start low dose acei as bp permits outpt as unable to do so here with toprol XL up titration to control rate, he does not require lasix regularly on dc -pt takes weight daily at home in the morning, instructed to contactpcp or cards with greater or equal to 2lb weight gain in a day. Also education to other signs of fluid overload. Verbalized good understanding of diagnosis, treatment plan and discharge plan, low salt diet on dc Prediabetes A1C 5.7- diet and lifestyle modifications, fu with pcp
[2018-07-22] MEDS ORDERED: Metoprolol XL (24 HR) Succ 50 MG TAB.ER.24H PO SCH (09:00)
== END 2018-07-21 14:55 | disposition home or self-care (01) | DRG 308 ==
LOC: EMEROOARM 09:55 → 2ANU 09:55 → SUATTDRO 13:58 → 2ANU 14:20
PROVIDERS: ADMIT Internal Medicine; ATTEND Internal Medicine